=== PATIENT | female | born 1980 | race Caucasian/White ===

== ENCOUNTER 2023-11-07 08:39 | Day surgery (SDC) | payer OTHER, SELFPAY ==
[2023-11-07] VITALS (11 sets, daily range): BP systolic 88–153; BP diastolic 50–94; BMI 36.7
[2023-11-07] MEDS: NORMOSOL-R 1000 IV (11:32)
[2023-11-07] MEDS: TYLENOL 1000 MG PO (11:32)
[2023-11-07] MEDS: DILAUDID 0.5 MG IV ×2 (13:20→13:38)
--- NOTE | 2023-11-07 14:46 | SUR.PHASEII ---
report given to Queenie VILLALOBOS assumed care of pt. , pt. transferred to [facility]
== END 2023-11-07 15:27 | disposition home or self-care (01) ==
LOC: SDS 08:39
PROVIDERS: ATTENDING PHYSICIAN Orthopaedic Surgery Hand Surgery
DX: S62.324A Displaced fracture of shaft of fourth metacarpal bone, right hand, initial encounter for closed fracture (principal); W01.0XXA Fall on same level from slipping, tripping and stumbling without subsequent striking against object, initial encounter
CPT/HCPCS: 26615; C1713

== ENCOUNTER → 2024-03-28 13:52 | Outpatient (REF) | payer OTHER, SELFPAY | LOC: HWWDC 13:52 | PROVIDERS: ATTENDING PHYSICIAN Nurse Practitioner Adult Health | DX: Z12.31 Encounter for screening mammogram for malignant neoplasm of breast (principal) | CPT/HCPCS: 77063; 77067 ==

== ENCOUNTER → 2024-04-18 10:24 | Outpatient (REF) | payer OTHER, SELFPAY | LOC: WDC 10:24 | PROVIDERS: ATTENDING PHYSICIAN Nurse Practitioner Adult Health | DX: R92.8 Other abnormal and inconclusive findings on diagnostic imaging of breast (principal) | CPT/HCPCS: 76642 ==